=== PATIENT | female | born 1960 | race Caucasian/White ===

== ENCOUNTER 2022-01-21 15:44 | Emergency (ER) | payer BC, OTHER ==
[2022-01-21] MEDS ORDERED: Diazepam 10 MG/2 ML SYRINGE ONE (16:14)
== END 2022-01-21 18:24 | disposition home or self-care (01) ==
LOC: CSHERS 15:44
DX: S16.1XXA Strain of muscle, fascia and tendon at neck level, initial encounter (principal); I10 Essential (primary) hypertension; K21.9 Gastro-esophageal reflux disease without esophagitis; E05.90 Thyrotoxicosis, unspecified without thyrotoxic crisis or storm; Y04.2XXA Assault by strike against or bumped into by another person, initial encounter; Y92.129 Unspecified place in nursing home as the place of occurrence of the external cause; Z79.899 Other long term (current) drug therapy
CPT/HCPCS: 72125; 96372; J3360

== ENCOUNTER 2022-04-09 11:02 | Observation (INO) | payer BC ==
[~2022-04-09 11:02] MED LIST: Iopamidol 300 61% 100 ML VIAL FS ONE
[2022-04-09] MEDS ORDERED: Nitroglycerin 0.4 MG TAB 1 EACH ONE (11:26)
[2022-04-09] MEDS ORDERED: Nitroglycerin 2% Ointment 1 INCH/1 GM Packet ONE (11:27)
[2022-04-09] MEDS ORDERED: Acetaminophen 500 MG TAB ONE (11:32)
[2022-04-09 11:49] LABS: #Eosinphils 0.1 10x3/uL (0.0-0.5); #Monocytes 0.5 10x3/uL (0.0-1.1); #Neutrophils 2.4 10x3/uL (1.5-8.4); %Basophils 0.6 % (0.0-2.0); %Eosinophils 2.2 % (0.0-6.0); %Lymphocytes 38.7 % (18.0-47.0); %Monocytes 10.7 % (0.0-10.0); %Neutrophils 47.4 % (40.0-75.0); Hemoglobin 13.4 g/dL (12.0-15.5); Mean Corpuscular HGB CONC 34.8 g/dL (32.0-36.0); Mean Corpuscular Hemoglobin 31.4 pg (27.0-33.0); Mean Corpuscular Volume 90.2 fl (81.6-98.3); Mean Platelet Volume 9.9 fl (7.4-10.4); Platelet Count 242 10x3/uL (150-450); RBC Distribution Width 13.5 % (11.5-14.5); Red Blood Cell (RBC) Count 4.27 10x6/uL (3.90-5.03)
[2022-04-09 12:00] LABS: ALT (SGPT) 28 U/L (8-55); AST (SGOT) 30 U/L (5-34); Albumin 4.3 g/dL (3.4-4.8); Alkaline Phosphatase 79 U/L (40-110); Anion Gap 16 mmol/L (10-20); BUN (Urea Nitrogen) 10 mg/dL (9.8-20.1); Bilirubin, Total 0.5 mg/dL (0.2-1.2); Calc. Creatinine Clearance 0 mL/min (70-130); Calcium 9.2 mg/dL (7.8-10.44); Carbon Dioxide 26 mmol/L (23-31); Chloride 93 mmol/L (98-107); Estimated GFR 64; Glucose 118 mg/dL (80-115); Potassium 4.7 mmol/L (3.5-5.1); Protein, Total 7.3 g/dL (5.8-8.1); Sodium 130 mmol/L (136-145)
[2022-04-09] MEDS ORDERED: Metoclopramide HCl 10 MG/2 ML VIAL ONE (12:16)
[2022-04-09] MEDS ORDERED: diphenhydrAMINE 50 MG/ML VIAL ONE (12:17)
[2022-04-09 13:29] LABS: SARS-CoV-2 NAA Rapid Test Not Detected (NotDetected)
[2022-04-09] MEDS ORDERED: Morphine 4 MG/ML VIAL ONE (14:19)
[2022-04-09 14:32] LABS: Troponin I 0.094 ng/mL (< 0.028)
[2022-04-09] MEDS ORDERED: Ondansetron PF 4 MG/2 ML Vial IVP PRN (15:29)
[2022-04-09] MEDS ORDERED: Ondansetron ODT 4 MG TAB PO PRN (15:29)
[2022-04-09] MEDS ORDERED: Acetaminophen 325 MG TAB PO PRN (15:29)
[2022-04-09] MEDS ORDERED: Pantoprazole 40 MG VIAL IVP SCH (15:30)
[2022-04-09 15:37] VITALS: BMI 28.7
[2022-04-09] MEDS ORDERED: Morphine 4 MG/ML VIAL SLOW IVP SCH (17:15)
[2022-04-09 18:41] LABS: CKMB 14.8 ng/mL (0-6.6)
[2022-04-09] MEDS ORDERED: Heparin 10,000 UNITS/ 10 ML VIAL ONE (19:16)
[2022-04-09] MEDS ORDERED: Nitroglycerin 50 MG/250 ML BOT 0 ML ONE (19:16)
[2022-04-09] MEDS ORDERED: Lidocaine 1% 20 ML MDV ONE (19:16)
[2022-04-09] MEDS ORDERED: Adenosine 6 MG/2 ML VIAL ONE (19:17)
[2022-04-09] MEDS ORDERED: Fentanyl 100 MCG/2 ML VIAL ONE (19:17)
[2022-04-09] MEDS ORDERED: Midazolam HCl 2 mg/2 ml Vial ONE ×2 (19:18→20:04)
[2022-04-09] MEDS ORDERED: Prevnar 13-Val Conj/PF 0.5 ML SYRINGE IM ONE (20:00)
[2022-04-09] MEDS ORDERED: Atorvastatin Calcium 40 MG TAB PO SCH (21:00)
[2022-04-09] MEDS ORDERED: Nitroglycerin 2% Ointment 1 INCH/1 GM Packet TOP SCH (22:00)
[2022-04-09] MEDS ORDERED: Ibuprofen 600 MG TAB PO SCH (23:15)
[2022-04-10 04:38] LABS: #Eosinphils 0.1 10x3/uL (0.0-0.5); #Monocytes 0.6 10x3/uL (0.0-1.1); %Basophils 0.3 % (0.0-2.0); %Eosinophils 0.8 % (0.0-6.0); %Lymphocytes 23.6 % (18.0-47.0); %Monocytes 9.7 % (0.0-10.0); %Neutrophils 65.1 % (40.0-75.0); Hemoglobin 11.4 g/dL (12.0-15.5); Mean Corpuscular HGB CONC 34.1 g/dL (32.0-36.0); Mean Corpuscular Hemoglobin 31.1 pg (27.0-33.0); Platelet Count 204 10x3/uL (150-450); RBC Distribution Width 13.5 % (11.5-14.5); Red Blood Cell (RBC) Count 3.67 10x6/uL (3.90-5.03); White Blood Cell (WBC) Count 6.1 10x3/uL (3.5-10.5)
[2022-04-10 04:57] LABS: Anion Gap 13 mmol/L (10-20); BUN (Urea Nitrogen) 10 mg/dL (9.8-20.1); Calc. Creatinine Clearance 77 mL/min (70-130); Calcium 8.4 mg/dL (7.8-10.44); Carbon Dioxide 23 mmol/L (23-31); Cardiac Risk 2.8 (Less than 4.5); Chloride 98 mmol/L (98-107); Cholesterol 180 mg/dl (< 200 Desired); Estimated GFR 82; Glucose 99 mg/dL (80-115); HDL Cholesterol 65 mg/dL (>60 Neg Risk); LDL Cholesterol, Calculated 101 mg/dL; Magnesium 1.8 mg/dL (1.6-2.6); Potassium 3.6 mmol/L (3.5-5.1); Sodium 130 mmol/L (136-145); Triglycerides 69 mg/dL (Less than 150)
[2022-04-10] MEDS ORDERED: Levothyroxine Sodium 50 MCG TAB PO SCH (07:30)
[2022-04-10] MEDS ORDERED: Ibuprofen 600 MG TAB PO PRN (08:27)
[2022-04-10] MEDS ORDERED: Aspirin Chewable 81 MG TAB PO SCH (09:00)
[2022-04-10] MEDS ORDERED: Citalopram 20 MG TAB PO SCH (09:00)
[2022-04-10] MEDS ORDERED: Enoxaparin Sodium 40 MG/0.4 ML SYRINGE SC SCH (09:00)
[2022-04-10] MEDS ORDERED: Losartan 25 MG TAB PO SCH (09:00)
[2022-04-10] MEDS ORDERED: Triamterene/Hydrochlorothiazide TAB PO SCH (09:45)
[2022-04-10 17:12] VITALS: BP 155/75; TEMP 98.1
[2022-04-11] MEDS ORDERED: Triamterene/Hydrochlorothiazide TAB PO SCH (09:00)
== END 2022-04-10 15:00 | disposition home or self-care (01) ==
LOC: CSHERS 11:02 → CSHERHOLD 13:33 → CSHTELE 15:33
PROVIDERS: ADMIT Family Medicine; ATTEND Family Medicine
PROC: 4A023N7 Measurement of Cardiac Sampling and Pressure, Left Heart, Percutaneous Approach (ICD-10-PCS; principal; 2022-04-09)
PROC: B201YZZ Plain Radiography of Multiple Coronary Arteries using Other Contrast (ICD-10-PCS; 2022-04-09)
PROC: B205YZZ Plain Radiography of Left Heart using Other Contrast (ICD-10-PCS; 2022-04-09)
DX: I21.4 Non-ST elevation (NSTEMI) myocardial infarction (principal); I25.119 Atherosclerotic heart disease of native coronary artery with unspecified angina pectoris; I10 Essential (primary) hypertension; I16.0 Hypertensive urgency; E78.5 Hyperlipidemia, unspecified; K21.9 Gastro-esophageal reflux disease without esophagitis; E03.9 Hypothyroidism, unspecified; Z20.822 Contact with and (suspected) exposure to COVID-19; Z79.82 Long term (current) use of aspirin; Z79.899 Other long term (current) drug therapy; Z90.710 Acquired absence of both cervix and uterus; Z98.890 Other specified postprocedural states
CPT/HCPCS: 36415; 70450; 71045; 71275; 80048; 80053; 80061; 82553; 83735; 83880; 84443; 84484; 85025; 93005; 93010; 93306; 93458; 94760; 96372; 96374; 96375; 96376; 99152; C1760; C1769; C9113; G0378; J0153; J1200; J1644; J1650; J2250; J2270; J2765; J3010; Q9967; U0002